=== PATIENT | male | born 1990 ===

== ENCOUNTER 2019-02-22 20:18 | Emergency (ER) | payer SELFPAY ==
[~2019-02-22] VITALS: Ht 190.5 cm; Wt 67.8 kg
[2019-02-22] MEDS ORDERED: CEPHALEXIN500 MG PO (20:36)
[2019-02-22] MEDS ORDERED: TRAMADOL HCL50 MG PO (20:36)
== END 2019-02-22 20:42 | disposition home or self-care (01) ==
LOC: ED 20:18
DX: K08.89 Other specified disorders of teeth and supporting structures (principal); F17.200 Nicotine dependence, unspecified, uncomplicated
CPT/HCPCS: 99282